=== PATIENT | female | born 1990 | race Caucasian/White ===

== ENCOUNTER 2023-01-31 16:09 | Outpatient (CLI) | payer OTHER, SELFPAY ==
[2023-01-31 18:08] LABS: Basophils Absolute Auto 0.1 K/mm3 (0.0-0.1); Basophils Percent Auto 0.7 % (0.2-1.2); Eosinophils Absolute Auto 0.1 K/mm3 (0-0.3); Eosinophils Percent Auto 1.4 % (0-4.4); Hematocrit 37.7 % (37.0-47.0); Hemoglobin 12.1 g/dL (12.0-15.0); Immature Granulocyte Absolute 0.04 K/mm3 (0.00-0.031); Immature Granulocyte Percent A 0.4 % (0-0.5); Lymphocytes Absolute Auto 2.06 K/mm3 (0.9-3.2); Lymphocytes Percent Auto 22.9 % (18.3-44.2); Mean Corpuscular HGB Conc 32.1 g/dl (32-36); Mean Corpuscular Hemoglobin 28.7 pg (26-34); Mean Corpuscular Volume 89.5 fl (80-100); Mean Platelet Volume 10.2 fl (7.4-10.4); Monocytes Absolute Auto 0.6 K/mm3 (0.1-0.6); Monocytes Percent Auto 7.1 % (2.6-8.5); Neutrophils Absolute Auto 6.1 K/mm3 (1.3-6.7); Neutrophils Percent Auto 67.5 % (45.5-73.1); Platelet Count Result 335 k/mm3 (150-375); Red Blood Count 4.21 M/mm3 (4.2-5.4)
[2023-01-31 18:46] LABS: Glucose 1 Hour PP 50gm Dose 102 mg/dL
[2023-01-31 19:19] LABS: Hepatitis B Surface Antigen Negative (Negative)
[2023-01-31 19:20] LABS: HIV 1/2 Ab P24 Ag Result Negative (Negative)
[2023-02-01 14:27] LABS: Rapid Plasma Reagin Non-Reactive (NonReactive)
[2023-02-02 11:32] LABS: HIV 1 2 Ag Ab 4th Gen w Rflxs Nonreactive (Nonreactive)
[2023-02-04 13:58] LABS: CMV IgG Antibody <0.60 U/mL (<0.60)
[2023-02-13 10:57] LABS: CF Result NEGATIVE (NEGATIVE)
== END 2023-01-31 16:10 | disposition home or self-care (01) ==
PROVIDERS: PCP Internal Medicine; Visit Provider Obstetrics & Gynecology
DX: N91.2 Amenorrhea, unspecified (principal)
CPT/HCPCS: 36415; 81220; 82947; 84443; 85025; 86592; 86644; 86703; 86747; 86762; 86787; 86850; 86900; 86901; 87086; 87340; 87389; G0432

== ENCOUNTER 2023-02-28 20:49 | Emergency (ER) | payer OTHER, SELFPAY ==
[2023-02-28 21:20] VITALS: BP 130/79; PULSE 123; RESP 14; TEMP 37.6; O2SAT 98
[2023-03-01 00:57] VITALS: BP 141/94; PULSE 97; RESP 21; TEMP 37; O2SAT 98
[2023-03-01 01:00] VITALS: O2SAT 95
[2023-03-01 01:37] VITALS: BP 131/89; PULSE 84; RESP 20; O2SAT 99
--- NOTE | 2023-03-01 02:56 | ED.URI ---
HPI - URI/Sore Throat General Chief Complaint: Upper Respiratory Infection Stated Complaint: fever, 10 weeks preg, covid + Time Seen by Provider: 03/01/23 01:30 History of Present Illness HPI Narrative: Patient is a 32-year-old female approximately 10 weeks gestation presenting with a fever. Patient states that she has had body aches, cough for the last several days and tested positive for COVID-19 yesterday. She had a fever today so she took some Tylenol. Her temperature continued to be elevated around 102 F so she called [facility] who advised that she come to the ER. She has no further complaints. No chest pain, shortness of breath, abdominal pain, vomiting, vaginal bleeding. Related Data Home Medications Medication Instructions Recorded Confirmed vits no.126-ferrous fum tablet PO 02/19/23 02/19/23 28 mg iron-folic acid 800 mcg tablet (Classic ) Allergies Allergy/AdvReac Type Severity Reaction Status Date / Time amoxicillin Allergy Severe Hives Verified 03/01/23 01:01 Penicillins Allergy Severe Penicillins Verified 03/01/23 01:01 ([id number]) nitrofurantoin AdvReac Severe Hives Verified 03/01/23 01:01 [From Macrobid] Review of Systems Review of Systems: All systems reviewed & are unremarkable except as noted in HPI and below PMFSH Past Medical History Medical History Amenorrhea Bipolar disorder Missed Nexplanon insertion 02/11/13 Nexplanon insertion 02/09/17 Nexplanon removal/reinsertion Nexplanon removal 02/09/17 Nexplanon removal/reinsertion 04/26/18 Nexplanon removal Surgical History Surgical History History of primary c/s--irregular heart rate in patient and baby History of cholecystectomy (09/18/17) History of dilation and curettage 2004 d&c/ Family History Family History Mother Diabetes mellitus Father Hypertension Grandparent Malignant neoplasm of lung paternal grandfather paternal grandmother Malignant neoplasm of brain paternal grandmother Breast cancer paternal grandfather Malignant neoplasm of liver paternal grandmother Social History Social History Smoking status: Former smoker Smoking end date: 04/14/17 Alcohol intake: never Substance use: never Substance use type: does not use and other Lack of Transportation: No Lack of Food: Never True Current Housing: I Have Housing Concerned About Future Housing: No Difficulty Paying Gas/Electric Bills: No Difficulty Paying for Meds: No Currently Unemployed: No Education: Bachelor's Degree Difficulty w/ Childcare or Family Care: No Living arrangements: other Additional living arrangements comments: single Occupation/Education: occupation Additional occupation/education comments: teacher Gender identity (if verbalized by the patient): Female Sexual Orientation (if Verbalized by the Patient): Straight or Heterosexual Exam Narrative: GENERAL: Well-appearing, In no acute distress, pleasant cooperative HEAD: Normocephalic, atraumatic. EYES: PERRLA and EOMI. ENT: grossly unremarkable NECK: Supple. CHEST: Clear to auscultation. No respiratory distress. HEART: Regular rate and rhythm. EXTREMITIES: Normal range of motion. No edema. SKIN: Warm, dry, no rash. NEURO: Alert and oriented x3. PSYCH: Normal mood and affect. Course Vital Signs Vital signs: Vital Signs Temperature 99.6 F 02/28/23 21:20 Pulse Rate 123 H 02/28/23 21:20 Respiratory Rate 14 02/28/23 21:20 Blood Pressure 130/79 02/28/23 21:20 Pulse Oximetry 98 02/28/23 21:20 Oxygen Delivery Room Air 02/28/23 21:20 Temperature 98.7 F 03/01/23 03:07 Pulse Rate 82
[2023-03-01 03:07] VITALS: BP 130/87; PULSE 82; RESP 20; TEMP 37.1; O2SAT 100
== END 2023-03-01 03:09 | disposition home or self-care (01) ==
LOC: ANHED 03-01 03:01
PROVIDERS: Emergency Provider Emergency Medicine; PCP Internal Medicine
DX: O98.511 Other viral diseases complicating pregnancy, first trimester (principal); U07.1 COVID-19; Z3A.10 10 weeks gestation of pregnancy; Z90.49 Acquired absence of other specified parts of digestive tract; Z87.891 Personal history of nicotine dependence
CPT/HCPCS: 99281

== ENCOUNTER 2023-07-10 16:04 | Outpatient (CLI) | payer OTHER, SELFPAY ==
[2023-07-10 17:17] LABS: Basophils Percent Auto 0.3 % (0.2-1.2); Eosinophils Absolute Auto 0.1 K/mm3 (0-0.3); Eosinophils Percent Auto 1.4 % (0-4.4); Hematocrit 33.9 % (37.0-47.0); Hemoglobin 11.2 g/dL (12.0-15.0); Immature Granulocyte Absolute 0.14 K/mm3 (0.00-0.031); Immature Granulocyte Percent A 1.5 % (0-0.5); Lymphocytes Absolute Auto 1.54 K/mm3 (0.9-3.2); Lymphocytes Percent Auto 16.3 % (18.3-44.2); Mean Corpuscular Volume 90.9 fl (80-100); Mean Platelet Volume 10.2 fl (7.4-10.4); Monocytes Absolute Auto 0.6 K/mm3 (0.1-0.6); Monocytes Percent Auto 6.1 % (2.6-8.5); Neutrophils Percent Auto 74.4 % (45.5-73.1); Platelet Count Result 260 k/mm3 (150-375); Red Blood Count 3.73 M/mm3 (4.2-5.4); Red Cell Distribution Width 13.7 % (11.5-14.5); White Blood Count 9.5 K/mm3 (4.5-10.0)
[2023-07-10 17:26] LABS: Glucose 1 Hour PP 50gm Dose 169 mg/dL
[2023-07-10 18:07] LABS: HIV 1/2 Ab P24 Ag Result Negative (Negative)
== END 2023-07-10 16:05 | disposition home or self-care (01) ==
LOC: ANHLAB 16:06
PROVIDERS: PCP Internal Medicine; Visit Provider Obstetrics & Gynecology
DX: Z34.90 Encounter for supervision of normal pregnancy, unspecified, unspecified trimester (principal)
CPT/HCPCS: 36415; 82947; 85025; 86703; G0432

== ENCOUNTER 2023-07-20 08:05 | Outpatient (CLI) | payer OTHER, SELFPAY ==
[2023-07-20 08:29] LABS: Glucose Fasting Gestational 109 mg/dL (>/=95)
[2023-07-20 10:12] LABS: Glucose 1 Hour Gest 216 mg/dL (>/=180)
[2023-07-20 11:03] LABS: Glucose 2 Hour Gest 142 mg/dL (>/= 155)
[2023-07-20 12:03] LABS: Glucose 3 Hour Gest 127 mg/dL (>/=140)
== END 2023-07-20 08:06 | disposition home or self-care (01) ==
LOC: ANHLAB 08:06
PROVIDERS: PCP Internal Medicine; Visit Provider Obstetrics & Gynecology
DX: R73.09 Other abnormal glucose (principal)
CPT/HCPCS: 36415; 82951; 82952

== ENCOUNTER 2023-07-30 15:58 | Outpatient (RCR) | payer OTHER, SELFPAY | END 2023-10-22 09:31 | disposition home or self-care (01) | LOC: ANHDMC 15:58 | PROVIDERS: PCP Internal Medicine; Visit Provider Obstetrics & Gynecology | DX: O24.419 Gestational diabetes mellitus in pregnancy, unspecified control (principal); Z71.89 Other specified counseling; Z3A.00 Weeks of gestation of pregnancy not specified | CPT/HCPCS: G0108 ==

== ENCOUNTER 2023-09-09 23:28 | Outpatient (CLI) | payer OTHER, SELFPAY ==
[2023-09-09 23:45] VITALS: BP 120/82; PULSE 85
[2023-09-09 23:56] VITALS: BP 120/82; PULSE 85
== END 2023-09-09 23:58 | disposition home or self-care (01) ==
LOC: ANHOBOP 23:40 → ANHLDR 09-10 06:13
PROVIDERS: PCP Internal Medicine; Visit Provider Obstetrics & Gynecology
DX: O36.8130 Decreased fetal movements, third trimester, not applicable or unspecified (principal); Z3A.38 38 weeks gestation of pregnancy
CPT/HCPCS: 59025; 99199

== ENCOUNTER 2023-09-11 10:34 | Outpatient (RCR) | payer OTHER, SELFPAY ==
[2023-08-10 18:06] VITALS: BP 125/83; PULSE 85
[2023-08-14 17:15] VITALS: BP 128/81; PULSE 99
[2023-08-17 17:08] VITALS: BP 119/74
[2023-08-21 18:01] VITALS: BP 121/87; PULSE 77
[2023-08-24 17:15] VITALS: BP 125/77; PULSE 101
[2023-08-28 18:34] VITALS: BP 114/71; PULSE 95
[2023-08-31 16:22] VITALS: BP 120/80; PULSE 92
[2023-09-04 18:45] VITALS: BP 105/79; PULSE 78
[2023-09-07 17:42] VITALS: BP 123/80; PULSE 79
--- NOTE | ~2023-09-11 | US_ITS ---
EXAMINATION: US OB BPP wo non-stress DATE: 08/28/2023 17:54 INDICATION: BPP, GDM . TECHNIQUE: Real-time ultrasound of the pelvis was performed. COMPARISON: None. FINDINGS: There is a single living fetus in vertex presentation, longitudinal lie. The placenta is posterior. heart rate is 159 bpm. The amniotic fluid index is 11 cm, which is normal (5th to 95th percenti le is 7.5 to 24.4 cm). Biophysical profile performed by the technologist: breathing (30 sec sustained breathing in 30 minutes): 2 out of 2. movement (3 gross body movements in 30 minutes: 2 out of 2. tone (one episode of qnmzqzc-ilcywrohr-gejhkix limb movement): 2 out of 2. Amniotic fluid pocket (2 cm): 2 out of 2. Total score: 8 out of 8. IMPRESSION: Single living fetus in vertex presentation. Biophysical profile 8 out of 8. Reviewed, dictated and finalized at location K.
--- NOTE | ~2023-09-11 | US_ITS ---
EXAMINATION: US OB BPP wo non-stress DATE: 08/14/2023 17:48 INDICATION: Large for gestational age. Maternal diabetes. Third trimester . TECHNIQUE: Real-time pelvic ultrasound was performed. The interpreting radiologist was not present fo r the study. COMPARISON: None. FINDINGS: There is a single living fetus in vertex presentation. The placenta is fundal. heart rate is 1 50 beats per minute (bpm). Amniotic fluid volume is subjectively normal with normal deepest vertical pocket of 5.8 cm . Biophysical profile performed by the technologist: breathing (30 sec sustained breathing in 30 minutes): 2 out of 2 movement (3 gross body movements in 30 minutes): 2 out of 2 tone (one episode of chjvlje-nmozewfqv-hsofbpp limb movement): 2 out of 2 Amniotic fluid pocket (2 cm): 2 out of 2 Total score: 8 out of 8 IMPRESSION: 1. Single living fetus in vertex presentation with heart rate of 150 bpm. 2. Biophysical profile 8 out of 8. Reviewed, dictated and finalized at location A.
--- NOTE | ~2023-09-11 | US_ITS ---
EXAMINATION: US OB follow up DATE: 08/31/2023 17:01 INDICATION: Gestational diabetes. Third trimester. TECHNIQUE: Real-time ultrasound of the pelvis was performed. COMPARISON: Ultrasound 08/28/2023 FINDINGS: There is a single living fetus in vertex presentation. The placenta is fundal. heart rate is 1 58 beats per minute (bpm). The amniotic fluid index is 13.1 cm, which is normal. The following biometric data were obtained: Biparietal diameter (BPD): 10.0 cm; head circumference (HC): 35.3 cm; abdominal circumference (AC): 3 4.3 cm; femur length (FL): 7.5 cm. These measurements are concordant. Estimated weight is 3643 g +/- 546 g, which correlates with the 89th percentile when 09/17/23 is used as estimated date of delivery. As single measurements, these parameters are each equal to the following estimated gestational ages: BPD: 41 weeks 1 days. HC: 41 weeks 2 days. AC: 38 weeks 2 days. FL: 38 weeks 2 days. estimated gestational age based solely on measurements from this exam is 39 weeks 5 days +/- 2 weeks 5 days. IMPRESSION: 1. Single living fetus in vertex presentation. 2. Estimated weight is 3643 g +/- 546 g, which correlates with the 89th percentile when 4 is used as estimated date of delivery. Reviewed, dictated and finalized at location A. IMPRESSION: 1. Single living fetus in vertex presentation. 2. Estimated weight is 3643 g +/- 546 g, which correlates with the 89th percentile when 09/17/23 is used as estimated date of delivery.
--- NOTE | ~2023-09-11 | US_ITS ---
EXAMINATION: US OB follow up DATE: 08/10/2023 17:55 INDICATION: Gestational diabetes. Third trimester. TECHNIQUE: Real-time ultrasound of the pelvis was performed. COMPARISON: Ultrasound 02/07/2023 FINDINGS: There is a single living fetus in vertex presentation. The placenta is posterior. heart rate i s 134 beats per minute (bpm). The amniotic fluid volume is subjectively normal. The following biometric data were obtained: Biparietal diameter (BPD): 9.2 cm; head circumference (HC): 33.4 cm; abdominal circumference (AC): 32 .2 cm; femur length (FL): 7.0 cm. These measurements are concordant. Estimated weight is 2945 g +/- 442 g, which correlates with the >97th percentile when 09/21/23 i s used as estimated date of delivery. As single measurements, these parameters are each equal to the following estimated gestational ages: BPD: 37 weeks 4 days. HC: 38 weeks 1 days. AC: 36 weeks 0 days. FL: 36 weeks 1 days. estimated gestational age based solely on measurements from this exam is 37 weeks 0 days +/- 2 weeks 4 days. IMPRESSION: 1. Single living fetus in vertex presentation. 2. Large for gestational age. Estimated weight is 2945 g +/- 442 g, which correlates with the >97th percentile when 09/21/23 is used as estimated date of delivery. Reviewed, dictated and finalized at location E. IMPRESSION: 1. Single living fetus in vertex presentation. 2. Large for gestational age. Estimated weight is 2945 g +/- 442 g, whic h correlates with the >97th percentile when 09/21/23 is used as estimated date o f delivery.
--- NOTE | ~2023-09-11 | US_ITS ---
EXAMINATION: US OB BPP wo non-stress DATE: 08/21/2023 17:47 INDICATION: GDM . TECHNIQUE: Real-time ultrasound of the pelvis was performed. COMPARISON: 08/14/2023 FINDINGS: There is a single living fetus in vertex presentation, longitudinal lie. The placenta is fundal. Fet al heart rate is 115 bpm. The amniotic fluid index is 9.9 cm, which is normal (5th to 95th percentile is 7.9 to 24.9 cm). Biophysical profile performed by the technologist: breathing (30 sec sustained breathing in 30 minutes): 2 out of 2. movement (3 gross body movements in 30 minutes: 2 out of 2. tone (one episode of kfgqasq-qlxczeefw-nsrujvn limb movement): 2 out of 2. Amniotic fluid pocket (2 cm): 2 out of 2. Total score: 8 out of 8. IMPRESSION: Single living fetus in vertex presentation. Biophysical profile 8 out of 8. Reviewed, dictated and finalized at location K.
--- NOTE | ~2023-09-11 | US_ITS ---
EXAMINATION: US OB BPP wo non-stress DATE: 09/07/2023 17:30 INDICATION: Maternal gestational diabetes TECHNIQUE: Real-time pelvic ultrasound was performed. The interpreting radiologist was not present fo r the study. COMPARISON: None. FINDINGS: There is a single living fetus in vertex presentation. The placenta is fundal. heart rate is 1 33 beats per minute (bpm). Normal deepest vertical amniotic fluid pocket measuring 5.4 cm and normal amniotic fluid index of 13.3 cm (5th%-95%: 7.3-33.9 cm at 38 weeks estimated gestational age). Biophysical profile performed by the technologist: breathing (30 sec sustained breathing in 30 minutes): 2 out of 2 movement (3 gross body movements in 30 minutes): 2 out of 2 tone (one episode of jatwojg-cdjbddbmh-toumkye limb movement): 2 out of 2 Amniotic fluid pocket (2 cm): 2 out of 2 Total score: 8 out of 8 IMPRESSION: 1. Single living fetus in vertex presentation with heart rate of 133 bpm. 2. Biophysical profile 8 out of 8. 3. Normal amniotic fluid index of 13.3 cm. Reviewed, dictated and finalized at location A.
[2023-09-11 11:02] VITALS: BP 129/83; PULSE 78
== END 2023-11-08 23:59 | disposition home or self-care (01) ==
LOC: ANHOBOP 10:34
PROVIDERS: PCP Internal Medicine; Visit Provider Obstetrics & Gynecology
DX: O24.419 Gestational diabetes mellitus in pregnancy, unspecified control (principal); O36.63X0 Maternal care for excessive fetal growth, third trimester, not applicable or unspecified; Z3A.34 34 weeks gestation of pregnancy
CPT/HCPCS: 59025; 76816; 76819; J2274

== ENCOUNTER 2023-09-12 17:01 | Outpatient (CLI) | payer OTHER, SELFPAY ==
[2023-09-12 17:21] LABS: Hematocrit 34.7 % (37.0-47.0); Hemoglobin 11.5 g/dL (12.0-15.0); Mean Corpuscular HGB Conc 33.1 g/dl (32-36); Mean Corpuscular Hemoglobin 30.1 pg (26-34); Mean Corpuscular Volume 90.8 fl (80-100); Mean Platelet Volume 11.2 fl (7.4-10.4); Platelet Count Result 223 k/mm3 (150-375); Red Blood Count 3.82 M/mm3 (4.2-5.4); Red Cell Distribution Width 13.9 % (11.5-14.5); White Blood Count 6.9 K/mm3 (4.5-10.0)
[2023-09-12 18:21] LABS: HIV 1/2 Ab P24 Ag Result Negative (Negative)
[2023-09-13 11:38] LABS: Rapid Plasma Reagin Non-Reactive (NonReactive)
== END 2023-09-12 17:02 | disposition home or self-care (01) ==
LOC: ANHLAB 17:03
PROVIDERS: PCP Internal Medicine; Visit Provider Obstetrics & Gynecology
DX: O82 Encounter for cesarean delivery without indication (principal); Z3A.00 Weeks of gestation of pregnancy not specified
CPT/HCPCS: 36415; 85027; 86592; 86703; 86850; 86900; 86901; G0432

== ENCOUNTER 2023-09-13 10:05 | Inpatient (IN) | payer OTHER, SELFPAY ==
[2023-09-13] VITALS (41 sets, daily range): BP systolic 102–132; BP diastolic 52–88; PULSE 53–103; RESP 16–18; TEMP 36.3–36.5; O2SAT 95–100; BMI 54.4
--- NOTE | 2023-09-13 08:08 | PM.IMHP ---
H&P: HPI History of Present Illness Date/Time: 09/13/23 08:08 32-year-old 5 para 1031 at 39 weeks gestation presents for repeat delivery. This has been complicated by obesity and gestational diabetes, which has been well-controlled with glyburide q.h.s. no other issues or concerns during the . Chief Complaint: Review of Systems Review of Systems: All systems reviewed & are unremarkable except as noted in HPI and below PMFSH Past Medical History Medical History Amenorrhea Bipolar disorder Gestational diabetes (07/24/23) Missed Nexplanon insertion 02/11/13 Nexplanon insertion 02/09/17 Nexplanon removal/reinsertion Nexplanon removal 02/09/17 Nexplanon removal/reinsertion 04/26/18 Nexplanon removal Surgical History Surgical History History of primary c/s--irregular heart rate in patient and baby History of cholecystectomy (09/18/17) History of dilation and curettage 2005 d&c/ Family History Family History Mother Diabetes mellitus Father Hypertension Grandparent Malignant neoplasm of lung paternal grandfather paternal grandmother Malignant neoplasm of brain paternal grandmother Breast cancer paternal grandfather Malignant neoplasm of liver paternal grandmother Social History Social History Smoking status: Former smoker Smoking end date: 04/14/17 Alcohol intake: never Substance use: never Substance use type: does not use and other Lack of Transportation: No Lack of Food: Never True Current Housing: I Have Housing Concerned About Future Housing: No Difficulty Paying Gas/Electric Bills: No Difficulty Paying for Meds: No Currently Unemployed: No Education: Bachelor's Degree Difficulty w/ Childcare or Family Care: No Living arrangements: other Additional living arrangements comments: single Occupation/Education: occupation Additional occupation/education comments: teacher Gender identity (if verbalized by the patient): Female Sexual Orientation (if Verbalized by the Patient): Straight or Heterosexual Spiritual care concerns: No Meds Home Medications and Allergies Home Medications Medication Instructions Recorded Confirmed Type vits no.126-ferrous fum 1 tablet PO DAILY 02/19/23 09/10/23 History 28 mg iron-folic acid 800 mcg tablet (Classic ) aspirin 81 mg tablet,delayed 162 mg PO DAILY 04/24/23 09/10/23 History release (Adult Low Dose Aspirin) lidocaine 3 %-hydrocortisone 0.5 % 1 applic RECTAL BID #98 grams 07/02/23 09/10/23 Rx rectal cream ferrous sulfate 137 mg (45 mg 137 mg PO DAILY 08/08/23 09/10/23 History iron) tablet,extended release glyburide 2.5 mg tablet 2.5 mg PO DAILY #30 tabs 08/08/23 09/10/23 Rx docusate sodium 100 mg capsule 100 mg PO DAILY 09/10/23 09/10/23 History (Colace) Allergies Allergy/AdvReac Type Severity Reaction Status Date / Time amoxicillin Allergy Severe Hives Verified 09/10/23 09:43 Penicillins Allergy Severe Penicillins Verified 09/10/23 09:43 ([id number]) nitrofurantoin AdvReac Severe Hives Verified 09/10/23 09:43 [From Macrobid] Exam Const: General: cooperative Resp: Effort & Inspection: normal respiratory effort Auscultation: clear to auscultation bilaterally Cardio: Rate: regular rate Rhythm: regular rhythm GI: Inspection: normal to inspection and incision Auscultation: normal bowel sounds : Bimanual exam- vagina & uterus: enlarged (40cm heart tone 140) Assessment and Plan Assessment and plan (1) 39 weeks gestation of : Code(s): Z3A.39 - 39 weeks gestation of Status: Acute (2) Prev
--- NOTE | 2023-09-13 08:10 | WPDHPUPDATE1 ---
History and Physical Update Update Date/Time: 09/13/23 08:10 History and Physical has been reviewed, including an updated exam of the patient. There are NO changes in the patient's condition. Risks, benefits, and alternatives have been discussed and questions answered. Patient agrees to proceed with procedure.
[2023-09-13] MEDS: ACETAMINOPHEN 500 MG TABLET 1000 MG PO (10:47)
[2023-09-13] MEDS: LACTATED RINGERS 1,000 ML 125 ML IV CONT (10:48)
[2023-09-13] MEDS: ONDANSETRON INJ 4 MG/2 ML VIAL IV PUSH ×2 (10:49→19:36)
[2023-09-13] MEDS: FAMOTIDINE 20 MG/2 ML VIAL IV PUSH (10:49)
[2023-09-13] MEDS: ceFAZolin 3 GM/D5W 100 ML 100 ML IVPB (10:49)
[2023-09-13 10:56] LABS: Glucose Point of Care 89 mg/dl (65-105)
--- NOTE | 2023-09-13 11:13 | WPDANESEPPF ---
Anes - Initial Pre Proc Eval Procedure: Operation Date: 09/13/23 12:00 Proposed Procedures p Repeat Section - José Luis Chanel MD Date/Time: 09/13/23 11:13 Surgeon: José Luis Chanel MD Pre Op Diagnosis: Repeat Patient Data Age: 32 Gender: F Height: 1.57 m Weight: 135 kg Last Vital Signs Pulse 103 H 09/13/23 10:52 BP 132/88 09/13/23 10:52 O2 Del Method Room Air 09/13/23 10:41 Allergies Allergy/AdvReac Type Severity Reaction Status Date / Time amoxicillin Allergy Severe Hives Verified 09/10/23 09:43 Penicillins Allergy Severe Penicillins Verified 09/10/23 09:43 ([id number]) nitrofurantoin AdvReac Severe Hives Verified 09/10/23 09:43 [From Macrobid] Home Medications Medication Instructions Recorded Confirmed Type vits no.126-ferrous fum 1 tablet PO DAILY 02/19/23 09/10/23 History 28 mg iron-folic acid 800 mcg tablet (Classic ) aspirin 81 mg tablet,delayed 162 mg PO DAILY 04/24/23 09/10/23 History release (Adult Low Dose Aspirin) lidocaine 3 %-hydrocortisone 0.5 % 1 applic RECTAL BID #98 grams 07/02/23 09/10/23 Rx rectal cream ferrous sulfate 137 mg (45 mg 137 mg PO DAILY 08/08/23 09/10/23 History iron) tablet,extended release glyburide 2.5 mg tablet 2.5 mg PO DAILY #30 tabs 08/08/23 09/10/23 Rx docusate sodium 100 mg capsule 100 mg PO DAILY 09/10/23 09/10/23 History (Colace) Laboratory Tests 09/13/23 10:32 POC Capillary Glucose 89 mg/dl (65-105) Patient hx anesthesia problems: none Family hx anesthesia problems: none Results Review: All pre-operative results and documents have been reviewed as part of the pre-operative evaluation. [facility] Past Medical History Medical History Amenorrhea Bipolar disorder Gestational diabetes (07/24/23) Missed Nexplanon insertion 02/11/13 Nexplanon insertion 02/09/17 Nexplanon removal/reinsertion Nexplanon removal 02/09/17 Nexplanon removal/reinsertion 04/26/18 Nexplanon removal Surgical History Surgical History History of primary c/s--irregular heart rate in patient and baby History of cholecystectomy (09/18/17) History of dilation and curettage 2005 d&c/ Family History Family History Mother Diabetes mellitus Father Hypertension Grandparent Malignant neoplasm of lung paternal grandfather paternal grandmother Malignant neoplasm of brain paternal grandmother Breast cancer paternal grandfather Malignant neoplasm of liver paternal grandmother Social History Social History Smoking status: Former smoker Second hand tobacco smoke exposure: Yes Smoking end date: 04/14/17 Alcohol intake: never Substance use: never Substance use type: does not use and other Do You Feel Safe in your Home?: Yes Lack of Transportation: No Lack of Food: Never True Current Housing: I Have Housing Concerned About Future Housing: No Difficulty Paying Gas/Electric Bills: No Difficulty Paying for Meds: No Currently Unemployed: No Education: Bachelor's Degree Difficulty w/ Childcare or Family Care: No Living arrangements: other Additional living arrangements comments: single Occupation/Education: occupation Additional occupation/education comments: teacher Gender identity (if verbalized by the patient): Female Sexual Orientation (if Verbalized by the Patient): Straight or Heterosexual Spiritual care concerns: No Anes - Eval Final PreProcedure Day of Procedure 09/13/23 11:13 Patient weight: morbidly obese Heart: regular rate and rhythm Lungs: clear to auscultation Airway: Mallampati scale class II Neurological: alert
--- NOTE | 2023-09-13 12:12 | W.PM.OBCSD ---
OB - Delivery Note Procedure Delivery date: 09/13/23 Pre-op diagnosis: Gestational Diabetes and Previous Delivery Post-op Diagnosis: Same Delivery monitor: External FHT and External Uterine Prior to decision for section, ACOG/SMFM labor guidelines were considered and discussed with the patient and staff. Decision made to proceed with the section.: Yes Procedure Performed: Repeat Secondary branch: low cervical, transverse Surgeon: José Luis Chanel MD Anesthesia type: Spinal Description of Procedure/Findings: Patient prepped and draped in usual manner for this procedure. Pfannenstiel incision was made carried down to the fascia which was then extended bilaterally the skin incision. This was then extended bilaterally and superiorly and inferiorly away from the rectus muscles. Peritoneum was entered without difficulty, bladder flap was developed. Uterus was scored a low segment extended the lower length of the uterine segment. Vertex was delivered without difficulty nuchal cord was noted, rest of baby was delivered cord clamped and cut and placenta was manually removed. Uterus was exteriorized and cleared of membranes and clots. Closed using 0 Monocryl running interlocking manner with the 2nd layer running interlocking imbricating suture to render the incision hemostatic. Uterus was returned to the abdomen no significant bleeding was observed. All subfascial tissue was noted be hemostatic and was fascia was approximated using 0 Vicryl from the left angle midline and the right angle to the midline with good approximation and hemostasis noted. All subcutaneous tissue was hemostatic and the subcutaneous space was closed using 0 plain suture in running manner. Julienne were then used to approximate the skin edges and the patient tells procedure well sent to recovery in stable condition. Specimen: Yes (Placenta) Estimated Blood Loss: 410 Drains: Yes (For catheter) Packing: No Pathology: Yes Complications: No immediate complications Condition: Stable Disposition: PACU [place] Baby Weeks of gestation at delivery: 39 Infant gender: Male Weight (pounds): 9 Weight (ounces): 7 presentation: vertex Placenta delivery description: Manual Removal Cord Vessel Description: 3 Vessels, Nuchal Cord and Loose score one minute: 8 score five minutes: 9
[2023-09-13] MEDS: OXYTOCIN 30 UNITS/NS 500 ML 30 UNITS/500 ML BAG 125 UNITS IV CONT (12:30)
[2023-09-13] MEDS: SIMETHICONE 80 MG TAB.CHEW PO (15:42)
[2023-09-13] MEDS: DOCUSATE SODIUM 100 MG CAPSULE PO (15:42)
[2023-09-13] MEDS: ACETAMINOPHEN 325 MG TABLET 650 MG PO ×2 (15:43→21:44)
[2023-09-13] MEDS: KETOROLAC 15 MG/ML VIAL (*BKC) IV PUSH ×2 (15:43→21:44)
[2023-09-13] MEDS: DEXTROSE 5%/0.45% SOD CHL 1,000 ML 125 ML IV CONT (17:14)
[2023-09-13] MEDS: LIDOCAINE 5% PATCH 1 PATCH TRANSDERM (17:14)
--- NOTE | 2023-09-13 18:51 | OBPPTRN ---
1458-Patient transferred to post room #286 via stretcher. Support person present. Oriented to unit, room, information board, rooming in, admission packet and security measures. Patient verbalizes understanding.
[2023-09-14] MEDS: diphenhydrAMINE HCl CAP 25 MG CAPSULE PO (00:40)
[2023-09-14] MEDS: KETOROLAC 15 MG/ML VIAL (*BKC) IV PUSH (03:45)
[2023-09-14] MEDS: ACETAMINOPHEN 325 MG TABLET 650 MG PO (03:45)
[2023-09-14 04:00] VITALS: BP 108/56; PULSE 66; RESP 18; TEMP 36.3; O2SAT 98
[2023-09-14 05:25] LABS: Basophils Percent Auto 0.4 % (0.2-1.2); Eosinophils Absolute Auto 0.1 K/mm3 (0-0.3); Eosinophils Percent Auto 1.2 % (0-4.4); Hematocrit 32.4 % (37.0-47.0); Hemoglobin 10.4 g/dL (12.0-15.0); Immature Granulocyte Absolute 0.04 K/mm3 (0.00-0.031); Immature Granulocyte Percent A 0.5 % (0-0.5); Lymphocytes Absolute Auto 0.95 K/mm3 (0.9-3.2); Lymphocytes Percent Auto 12.4 % (18.3-44.2); Mean Corpuscular HGB Conc 32.1 g/dl (32-36); Mean Corpuscular Hemoglobin 29.8 pg (26-34); Mean Corpuscular Volume 92.8 fl (80-100); Mean Platelet Volume 11.9 fl (7.4-10.4); Monocytes Absolute Auto 0.4 K/mm3 (0.1-0.6); Monocytes Percent Auto 5.5 % (2.6-8.5); Neutrophils Absolute Auto 6.2 K/mm3 (1.3-6.7); Platelet Count Result 193 k/mm3 (150-375); Red Blood Count 3.49 M/mm3 (4.2-5.4); White Blood Count 7.7 K/mm3 (4.5-10.0)
[2023-09-14] MEDS: SIMETHICONE 80 MG TAB.CHEW PO ×3 (07:41→17:12)
[2023-09-14] MEDS: DOCUSATE SODIUM 100 MG CAPSULE PO ×2 (07:41→17:12)
[2023-09-14] MEDS: MULTIVIT/MIN/PREN/FOL AC/IRON TABLET 1 TAB PO (07:41)
[2023-09-14] MEDS: HYDROcodone/acetaminophen (*CRX) 10-325 MG TABLET 1 TAB PO ×4 (07:41→18:42)
[2023-09-14] MEDS: LORATADINE 10 MG TABLET PO (07:41)
[2023-09-14 07:45] VITALS: BP 101/59; PULSE 98; RESP 16; TEMP 36.3; O2SAT 98
--- NOTE | 2023-09-14 07:56 | WPDANLDPN2 ---
Anes-Prog Note L&D Date/Time: 09/14/23 07:56 Comfortable throughout: section Neuraxial method: spinal Epidural/Spinal procedure site: clean & non-tender Neuro status: Neuro function grossly intact. Cardiovascular status: normal Respiratory status: normal Airway patency: baseline Mental status: baseline Post-Op hydration status: normal Vital Signs: Last Vital Signs Temp 36.3 C L 09/14/23 04:00 Pulse 66 09/14/23 04:00 Resp 18 09/14/23 04:00 BP 108/56 L 09/14/23 04:00 Pulse Ox 98 09/14/23 04:00 O2 Del Method Room Air 09/13/23 16:00 Pain score (VAS): 2/10 I/O: Intake & Output 09/13/23 09/13/23 09/14/23 15:59 23:59 07:59 Intake Total 650 1550 Output Total 510 900 500 Balance -510 -250 1050 Post-procedural complaints: none Patient feedback: Patient satisfied with anesthetic care.
--- NOTE | 2023-09-14 07:56 | WPDANLDNPN2 ---
Anes-Prog Note L&D-Neuraxial Date/Time: 09/14/23 07:56 Neuraxial medications: intrathecal PF morphine Opiod-related complaints: pruritis moderate, treatment effective Patient feedback: Patient satisfied with post-operative pain management.
[2023-09-14 08:00] VITALS: PULSE 98; RESP 16; O2SAT 98
[2023-09-14] MEDS: IBUPROFEN 600 MG TABLET PO ×3 (11:43→23:58)
--- NOTE | 2023-09-14 12:23 | P.PNOB_ITS ---
OB - PN: Subj Subjective Date/time seen: 09/14/23 12:23 Patient comments: no complaints, pain well controlled, tolerating diet and flatus present OB - PN: Obj Data Labs 09/14/23 03:54 Labs: Laboratory Results - last 24 hr 09/14/23 03:54 WBC 7.7 RBC 3.49 L Hgb 10.4 L Hct 32.4 L MCV 92.8 MCH 29.8 MCHC 32.1 RDW 14.0 Plt Count 193 MPV 11.9 H Immature Gran % (Auto) 0.5 Neut % (Auto) 80.0 H Lymph % (Auto) 12.4 L [place] % (Auto) 5.5 Eos % (Auto) 1.2 Baso % (Auto) 0.4 Lymph # (Auto) 0.95 [place] # (Auto) 0.4 Eos # (Auto) 0.1 Baso # (Auto) 0.0 Abs Immat Gran (auto) 0.04 H Absolute Neuts (auto) 6.2 Absolute Nucleated RBC 0.000 Nucleated RBC % 0.0 OB - PN A/P Plan day: 1 Plan: routine care Comments: patient doing well H/H stable afebrile, VSS incision covered solis removed, voiding spontaneously pt desires circumcision. Risks, benefits, alternatives discussed continue routine post op care Time Spent With Patient Time: Total time spent is greater than 50% in coordination of care (as documented) at patient's floor/unit and/or counseling patient: Time with patient: less than 15 minutes Review of Systems Constitutional: Constitutional: Reports no additional constitutional c omplaints Cardiovascular: Cardiovascular: Reports no additional cardiovascular complaints Respiratory: Respiratory: Reports no additional respiratory complaints Gastrointestinal: Gastrointestinal: Reports no additional gastrointestinal co mplaints Genitourinary: Genitourinary: Reports no additional female genitourinary complaints Exam Const: General: comfortable and no acute distress Resp: Effort & Inspection: normal respiratory effort Auscultation: clear to auscultation bilaterally Cardio: Rate: regular rate GI: GI Palp: Yes Soft to palpation, Yes Tenderness to palpation present (GI) (around incision ) and No Guarding due to palpation present (GI) Auscultation: normal bowel sounds Other: incision C/D/I, covered with Dermabond Psych: Appearance: grossly normal Mental Status: mental status grossly normal Affect: normal affect
--- NOTE | 2023-09-14 13:25 | PC.NURSE ---
Mother verbalizes she is able to independently latch with appropriate positioning and alignment. She denies any nipple discomfort and is responsively . Infant is currently meeting outcomes for weight, output, and jaundice. Mother declines any additional assistance or education at this time. Mother is encouraged to call for assistance if her infant doesn?t latch, pain with latching, questions or concerns. Mother voiced understanding of information shared along with the mom/baby guide for an additional resource. Reported to the Primary RN.
[2023-09-14] MEDS: LIDOCAINE 5% PATCH 1 PATCH TRANSDERM (17:13)
[2023-09-14 18:40] VITALS: BP 135/79; PULSE 71; RESP 18; TEMP 36.2; O2SAT 100
[2023-09-15] MEDS: HYDROcodone/acetaminophen (*CRX) 10-325 MG TABLET 1 TAB PO (02:03)
[2023-09-15] MEDS: SIMETHICONE 80 MG TAB.CHEW PO (07:32)
[2023-09-15] MEDS: DOCUSATE SODIUM 100 MG CAPSULE PO (07:33)
[2023-09-15] MEDS: ACETAMINOPHEN 325 MG TABLET 650 MG PO (07:34)
[2023-09-15] MEDS: IBUPROFEN 600 MG TABLET PO (07:34)
[2023-09-15] MEDS: HYDROcodone/acetaminophen (*CRX) 5-325 MG TABLET 1 TAB PO (07:35)
--- NOTE | 2023-09-15 08:10 | PM.OBDSVD ---
DS: Admitting Diagnosis Discharge Date 09/15/23 Admitting Diagnosis intrauterine at term history of gestational diabetes DS: Discharge Diagnosis Discharge Diagnosis (1) delivery delivered: Code(s): O82 - Encounter for delivery without indication Status: Acute OB - DS: Summary OB Procedures : None OB Procedures Intrapartum: OB Procedures: : None Peripartum Data Delivery Method: Section Procedures: Procedures Operation Date: 09/13/23 12:00 Actual Procedure Side Surgeon p Repeat Section José Luis Chanel MD complications: none Status at Discharge Functional status at discharge: independent ambulation Overall status at discharge: patient is progressing back to baseline Time Spent with Patient Time attestation: Total time spent providing and/or coordinating discharge services: Time spent: Less than 30 minutes Exam Const: General: comfortable and no acute distress Resp: Effort & Inspection: normal respiratory effort Auscultation: clear to auscultation bilaterally Cardio: Rate: regular rate GI: Inspection: non-distended GI Palp: Yes Soft to palpation, No Firmness to palpation present (GI), Yes Tenderness to palpation present (GI) (mild tenderness over incision ) and No Guarding due to palpation present (GI) Auscultation: normal bowel sounds Psych: Appearance: grossly normal Mental Status: mental status grossly normal DS: Data Data Completed and Pending Pending studies at discharge: Pending at discharge 09/13/23 11:44 Surgical [PTH] Routine Discharge Plan Discharge Discharging Clinician: Salvador Sabillon Patient Disposition: Home, Self-Care Activity: as tolerated and pelvic rest Diet: regular Patient Instructions: Antibiotic Form, (DC) Stand Alone Forms: General Discharge Information Follow-up/Referrals: José Luis Chanel MD [Physician] - Discharge Medications: New oxycodone-acetaminophen 5-325 mg tablet 1 tablet PO Q6H PRN (Reason: pain) Qty: 28 0RF ibuprofen 600 mg tablet 600 mg PO Q6H PRN (Reason: pain) Qty: 30 0RF Continued Classic 28 mg iron- 800 mcg tablet 1 tablet PO DAILY aspirin [Adult Low Dose Aspirin] 81 mg tablet,delayed release (DR/EC) 162 mg PO DAILY docusate sodium [Colace] 100 mg capsule 100 mg PO DAILY ferrous sulfate 137 mg (45 mg iron) tablet extended release 137 mg PO DAILY Discontinued glyburide 2.5 mg tablet 2.5 mg PO DAILY Qty: 30 1RF Date of admission: 09/13/23 10:05 Primary Care Provider: LottiePillo Admitting Provider: José Luis Chanel Attending physician on admission: José Luis Chanel Condition: Stable
[2023-09-15 08:15] VITALS: BP 121/77; PULSE 86; RESP 20; TEMP 36.3; O2SAT 96
[2023-09-15] MEDS: MULTIVIT/MIN/PREN/FOL AC/IRON TABLET 1 TAB PO (09:11)
--- NOTE | 2023-09-15 10:51 | PC.NURSE ---
Patient instructed on viewing the discharge video Mother & Baby Care, The First Two Weeks . Patient was given the opportunity and encouraged to ask questions. Patient verbalized understanding of information shared and has been given the mother/baby guide for home reference.
[2023-09-17 09:45] VITALS: BP 137/83; PULSE 85; RESP 18; TEMP 36.7; O2SAT 98
== END 2023-09-15 12:34 | disposition home or self-care (01) | DRG 788 ==
LOC: ANHLDR 10:23 → ANHOB2 09-15 08:12 → ANHLDR 09-18 06:07 → ANHOB2 09-18 06:07
PROVIDERS: Admitting Provider Obstetrics & Gynecology; PCP Internal Medicine; Visit Provider Student in an Organized Health Care Education/Training Program
PROC: 10D00Z1 Extraction of Products of Conception, Low, Open Approach (ICD-10-PCS; CPT 59514; principal; 2023-09-13 12:00)
DX: O34.219 Maternal care for unspecified type scar from previous cesarean delivery (principal); O99.214 Obesity complicating childbirth; O69.81X0 Labor and delivery complicated by cord around neck, without compression, not applicable or unspecified; O99.824 Streptococcus B carrier state complicating childbirth; O24.425 Gestational diabetes mellitus in childbirth, controlled by oral hypoglycemic drugs; Z3A.39 39 weeks gestation of pregnancy; Z37.0 Single live birth; Z87.891 Personal history of nicotine dependence
CPT/HCPCS: 36415; 82948; 85025; 85027; 86592; 86703; 86850; 86900; 86901; 88307; A9270; G0432; J0690; J1885; J2274; J2371; J2405; J2590; J7120